=== PATIENT | female | born 1945 | race Caucasian/White ===

== ENCOUNTER 2016-10-01 12:01 | Inpatient (IN) | payer MEDICARE, OTHER ==
[2016-10-01] VITALS (9 sets, daily range): BP systolic 120–151; BP diastolic 63–87; PULSE 64–80; RESP 16–18; TEMP 97.7–98.7; O2SAT 96–100
[~2016-10-01] VITALS: Ht 162.6 cm; Wt 110.9 kg
[~2016-10-01 12:01] MED LIST: ASPI81 PO; CALC625 PO; DETR4CAP PO; DOCU1CAP39 PO; HYDR-2768 PO; Hydrocodone/Acetaminophen PO; METO50CR PO; OMEP20TA PO; ROSU10 PO; TAB-TAB PO
--- NOTE | 2016-10-01 12:14 | PD ---
HPI Chief Complaint: chest pain Time Seen by Provider: 12:11 Travel History International Travel<30 days: No Contact w/Intl Traveler<30days: No History of Present Illness HPI Patient comes in for evaluation for chest pain that began shortly prior to arrival. Patient describes a pressure-like pain that radiated to her left jaw. Patient denies any back pain, nausea, vomiting, headache, numbness or tingling anywhere, or diaphoresis with this. Patient does report some mild shortness of breath with this. Patient sees Dr. Rivers and reports recently having echo, Holter monitor, chest CT, and carotid Doppler studies done. Patient reports she was recently started on Plavix, but has only taken 2 doses. Patient states she took 2 aspirin today one this morning and the second one after the chest pain began. Chest pain improved with oxygen administration by EMS. PFSH Past Medical History Arthritis: No Blood Disorders: No Cancer: No Cardiovascular Problems: Yes (MVP, ARRHYTHMIA) High Cholesterol: Yes Diabetes: No Diminished Hearing: No Endocrine: No Gastrointestinal Disorders: Yes GERD: Yes Genitourinary: Yes (FREQUENCY) Hepatitis: No Hiatal Hernia: Yes Immune Disorder: No Musculoskeletal: Yes Neurologic: No Psychiatric: No Reproductive: No Respiratory: No Thyroid Disease: No Ulcer: No Menopausal: Yes Tubal Ligation: Yes Past Surgical History AICD: No Gynecologic Surgery: Yes (TUBAL LIG.) Joint Replacement: Yes (KEITH. KNEES) Pacemaker: No Other Surgery: Yes ([facility]) Social History Alcohol Use: No Tobacco Use: No Substance Use: No Allergies-Medications (Allergen,Severity, Reaction): Coded Allergies: No Known Allergies (Verified , 10/01/16) Reported Meds & Prescriptions Reported Meds & Active Scripts Active [Hydrocodone/Acetaminophen] 1 TAB Tab 1 Tab PO Q4H PRN Reported Colace 100 Mg Cap (Docusate Sodium) 100 Mg Cap 100 Mg PO HS Fiber Con (Calcium Polycarbophil) 625 Mg Tab 625 Mg PO HS Multivitamin (Multivitamins) 1 Tab Tab 1 Tab PO DAILY Hctz (Hydrochlorothiazide) 25 Mg Tab 25 Mg PO DAILY Detrol La (Tolterodine Tartrate) 4 Mg Cap 4 Mg PO DAILY Omeprazole 20 mg (Omeprazole) 20 Mg Tab 1 Tab PO BID Metoprolol Succinate ER 50 mg (Metoprolol Succinate) 50 Mg Tab 50 Mg PO HS Crestor (Rosuvastatin Calcium) 10 Mg Tab 10 Mg PO HS Aspirin 81 Mg Tab 1 PO DAILY Review of Systems Except as stated in HPI: all other systems reviewed are Neg Physical Exam Narrative GENERAL: Well-developed, overly nourished, in no acute distress, and non-ill appearing. SKIN: Focused skin assessment warm and dry. HEAD: Atraumatic. Normocephalic. EYES: Pupils equal and round. EOMI. No scleral icterus. No injection or drainage. ENT: No nasal bleeding or discharge. Mucous membranes pink and moist. NECK: Trachea midline. Supple. No nuclear rigidity. CARDIOVASCULAR: Regular rate and rhythm. Murmur appreciated. RESPIRATORY: No accessory muscle use. No respiratory distress. Clear to auscultation. Breath sounds equal bilaterally. MUSCULOSKELETAL: No obvious deformities. No clubbing. No cyanosis. No edema. Full range of motion. NEUROLOGICAL: Awake and alert. No obvious cranial nerve deficits. Motor grossly within normal limits. Normal speech. PSYCHIATRIC: Appropriate mood and affect; insight and judgment normal. Data Data Last Documented VS Vital Signs Date Time Temp Pulse Resp B/P Pulse Ox O2 Delivery O2 Flow Rate FiO2 10/01/16 14:10 67 16 140/87 98 Nasal Cannula 2 10/01/16 12:08 98.5 Orders Electrocardiogram (10/01/16 12:10) Basic Metabolic Panel (Bmp) (10/01/16 12:10) Ckmb (Isoenzyme) Profile (10/01/16 12:10) Complete Blood Count With Diff (10/01/16 12:10) Magnesium (Mg) (10/01/16 12:10) Prothrombin Time / Inr (Pt) (10/01/16 12:10) Act Partial Throm Time (Ptt) (10/01/16 12:10) Troponin I (10/01/16 12:10) Chest, Single Ap (10/01/16 12:10) Ecg Monitoring (10/01/16 12:10) Bilateral Bp Monitoring (10/01/16 12:10) Iv Access Insert/Monitor (10/01/16 12:10) Oximetry (10/01/16 12:10) Oxygen Administration (10/01/16 12:10) Sodium Chloride 0.9% Flush (Ns Flush) (10/01/16 12:15) Nitroglycerin Sl (Nitrostat Sl) (10/01/16 12:15) CKMB (10/01/16 12:20) CKMB% (10/01/16 12:20) Consult Cardiology (10/01/16 ) Admit Order (Ed Use Only) (10/01/16 14:39) Labs Laboratory Tests Test 10/01/16 12:20 White Blood Count 5.1 TH/MM3 Red Blood Count 4.26 MIL/MM3 Hemoglobin 13.1 GM/DL Hematocrit 39.8 % Mean Corpuscular Volume 93.5 FL Mean Corpuscular Hemoglobin 30.8 PG Mean Corpuscular Hemoglobin 33.0 % Concent Red Cell Distribution Width 13.9 % Platelet Count 207 TH/MM3 Mean Platelet Volume 7.7 FL Neutrophils (%) (Auto) 49.3 % Lymphocytes (%) (Auto) 34.9 % Monocytes (%) (Auto) 13.0 % Eosinophils (%) (Auto) 1.9 % Basophils (%) (Auto) 0.9 % Neutrophils # (Auto) 2.5 TH/MM3 Lymphocytes # (Auto) 1.8 TH/MM3 Monocytes # (Auto) 0.7 TH/MM3 Eosinophils # (Auto) 0.1 TH/MM3 Basophils # (Auto) 0.0 TH/MM3 CBC Comment DIFF FINAL Differential Comment Prothrombin Time 10.0 SEC Prothromb Time International 0.9 RATIO Ratio Activated Partial 25.1 SEC Thromboplast Time Sodium Level 138 MEQ/L Potassium Level 3.9 MEQ/L Chloride Level 102 MEQ/L Carbon Dioxide Level 30.1 MEQ/L Anion Gap 6 MEQ/L Blood Urea Nitrogen 11 MG/DL Creatinine 0.69 MG/DL Estimat Glomerular Filtration 84 ML/MIN Rate Random Glucose 98 MG/DL Calcium Level 8.6 MG/DL Magnesium Level 2.0 MG/DL Total Creatine Kinase 106 U/L Creatine Kinase MB 0.8 NG/ML Troponin I LESS THAN 0.02 NG/ML MDM Medical Decision Making Medical Screen Exam Complete: Yes Emergency Medical Condition: Yes Interpretation(s) EKG reviewed by Dr. Harden shows sinus rhythm with ventricular rate of 66. No STEMI. Chest x-ray read by the radiologist shows: Compensated cardiomegaly otherwise negative. Differential Diagnosis Chest pain, acute coronary syndrome, pneumonia, electrolyte abnormality, pneumothorax, other Narrative Course Patient was seen and examined. IV was established. EKG is obtained and reviewed. Patient was placed on engine monitor. Labs were radiological studies were obtained and reviewed. Discussed patient with Dr. Harden, who saw and evaluated the patient and is in agreement with plan of care and disposition. Discussed all findings and plan of care with patient, who was agreeable for admission. All questions were answered. Patient remained stable throughout ED course. Physician Communication Physician Communication [address] Rivers, agreeable to consult on patient with patient to be admitted to the hospitalist. [id number] discussed patient with resident phone specialist for Dr. Mtz, who is agreeable to admit the patient. Diagnosis Primary Impression: Chest pain Qualified Code: R07.9 - Chest pain, unspecified type Admitting Information Admitting Physician Requests: Observation Condition: Stable Mohan Lyle Oct 01, 2016 12:14
[2016-10-01] MEDS ORDERED: SODIUM CHLORIDE 0.9% FLUSH 10 ML FLUSH IVF PRN (12:15)
--- NOTE | 2016-10-01 12:42 | RADRPT ---
EXAM DATE/TIME: 10/01/2016 12:14 [facility] COMPARISON: No previous studies available for comparison. INDICATIONS : Chest pain. MEDICAL HISTORY : None. SURGICAL HISTORY : None. ENCOUNTER: Initial ACUITY: 1 day PAIN SCORE: 5/10 LOCATION: Bilateral chest FINDINGS: The lungs are clear. The heart is minimally enlarged. The pulmonary vascularity is normal. There is n o evidence for infiltrate or failure. The portion of the bony skeleton visualized is unremarkable with exception of right right total shou lder arthroplasty.. CONCLUSION: Compensated cardiomegaly otherwise negative Tristan Barakat MD FACR Board Certified Radiologist. This report was verified electronically.
[2016-10-01] MEDS: NITROGLYCERIN 0.4 MG SL 25 TABS/BTL SL SCH ×3 (12:43→13:00)
[2016-10-01 12:48] LABS: AUTOMATED NEUTROPHIL # 2.5 TH/MM3 (1.8-7.7); BASOPHIL % 0.9 % (0.0-2.0); EOSINOPHIL # 0.1 TH/MM3 (0-0.4); EOSINOPHIL % 1.9 % (0.0-4.0); HEMATOCRIT 39.8 % (35.0-46.0); HEMO FLAGS DIFF FINAL; LYMPH % 34.9 % (9.0-44.0); LYMPHOCYTE # 1.8 TH/MM3 (1.0-4.8); MEAN CELL VOLUME 93.5 FL (80.0-100.0); MEAN CORPUSCULAR HEMOGLOBIN 30.8 PG (27.0-34.0); NEUT % 49.3 % (16.0-70.0); PLATELET COUNT 207 TH/MM3 (150-450); RED BLOOD COUNT 4.26 MIL/MM3 (4.00-5.30); RED CELL DISTRIBUTION WIDTH 13.9 % (11.6-17.2); WHITE BLOOD COUNT 5.1 TH/MM3 (4.0-11.0)
[2016-10-01 12:56] LABS: APTT (PATIENT) 25.1 SEC (24.3-30.1); INTERNATIONAL NORMALIZED RATIO 0.9 RATIO
[2016-10-01 13:11] LABS: ANION GAP 6 MEQ/L (5-15); BICARBONATE 30.1 MEQ/L (21.0-32.0); BLOOD UREA NITROGEN 11 MG/DL (7-18); CHLORIDE 102 MEQ/L (98-107); GLOMERULAR FILTRATION RATE 84 ML/MIN (>89); POTASSIUM 3.9 MEQ/L (3.5-5.1); SODIUM (NA) 138 MEQ/L (136-145)
[2016-10-01 13:15] LABS: CREATINE KINASE 106 U/L (26-192)
[2016-10-01 13:27] LABS: CKMB 0.8 NG/ML (0.5-3.6)
--- NOTE | 2016-10-01 15:21 | PD ---
Data Data Last Documented VS Vital Signs Date Time Temp Pulse Resp B/P Pulse Ox O2 Delivery O2 Flow Rate FiO2 10/01/16 14:10 67 16 140/87 98 Nasal Cannula 2 10/01/16 12:08 98.5 Orders Electrocardiogram (10/01/16 12:10) Basic Metabolic Panel (Bmp) (10/01/16 12:10) Ckmb (Isoenzyme) Profile (10/01/16 12:10) Complete Blood Count With Diff (10/01/16 12:10) Magnesium (Mg) (10/01/16 12:10) Prothrombin Time / Inr (Pt) (10/01/16 12:10) Act Partial Throm Time (Ptt) (10/01/16 12:10) Troponin I (10/01/16 12:10) Chest, Single Ap (10/01/16 12:10) Ecg Monitoring (10/01/16 12:10) Bilateral Bp Monitoring (10/01/16 12:10) Iv Access Insert/Monitor (10/01/16 12:10) Oximetry (10/01/16 12:10) Oxygen Administration (10/01/16 12:10) Sodium Chloride 0.9% Flush (Ns Flush) (10/01/16 12:15) Nitroglycerin Sl (Nitrostat Sl) (10/01/16 12:15) CKMB (10/01/16 12:20) CKMB% (10/01/16 12:20) Consult Cardiology (10/01/16 ) Admit Order (Ed Use Only) (10/01/16 14:39) Labs Laboratory Tests Test 10/01/16 12:20 White Blood Count 5.1 TH/MM3 Red Blood Count 4.26 MIL/MM3 Hemoglobin 13.1 GM/DL Hematocrit 39.8 % Mean Corpuscular Volume 93.5 FL Mean Corpuscular Hemoglobin 30.8 PG Mean Corpuscular Hemoglobin 33.0 % Concent Red Cell Distribution Width 13.9 % Platelet Count 207 TH/MM3 Mean Platelet Volume 7.7 FL Neutrophils (%) (Auto) 49.3 % Lymphocytes (%) (Auto) 34.9 % Monocytes (%) (Auto) 13.0 % Eosinophils (%) (Auto) 1.9 % Basophils (%) (Auto) 0.9 % Neutrophils # (Auto) 2.5 TH/MM3 Lymphocytes # (Auto) 1.8 TH/MM3 Monocytes # (Auto) 0.7 TH/MM3 Eosinophils # (Auto) 0.1 TH/MM3 Basophils # (Auto) 0.0 TH/MM3 CBC Comment DIFF FINAL Differential Comment Prothrombin Time 10.0 SEC Prothromb Time International 0.9 RATIO Ratio Activated Partial 25.1 SEC Thromboplast Time Sodium Level 138 MEQ/L Potassium Level 3.9 MEQ/L Chloride Level 102 MEQ/L Carbon Dioxide Level 30.1 MEQ/L Anion Gap 6 MEQ/L Blood Urea Nitrogen 11 MG/DL Creatinine 0.69 MG/DL Estimat Glomerular Filtration 84 ML/MIN Rate Random Glucose 98 MG/DL Calcium Level 8.6 MG/DL Magnesium Level 2.0 MG/DL Total Creatine Kinase 106 U/L Creatine Kinase MB 0.8 NG/ML Troponin I LESS THAN 0.02 NG/ML MDM Supervised Visit with BONITA: Yes Narrative Course The history, exam, and medical decision-making in the associated midlevel provider note were completed with my assistance. I reviewed and agree with the findings presented. I attest that I had a [id number] encounter with the patient on the same day, and personally performed and documented my assessment and findings in the medical record. *My assessment and Findings: This is a 67-year-old female who presents to the emergency department with left-sided chest discomfort. She has a reassuring EKG. Labs are obtained which were reassuring. We spoke to Dr. Rivers her rubber and pounder requested she be admitted for serial cardiac enzymes and likely risk stratification. She thinks her last stress test was over a year ago. Diagnosis Primary Impression: Chest pain Qualified Code: R07.9 - Chest pain, unspecified type Condition: Ruchi Hernandez MD Oct 01, 2016 15:21
[2016-10-01] MEDS ORDERED: SODIUM CHLORIDE 0.9% FLUSH 10 ML FLUSH IV FLUSH PRN (15:30)
[2016-10-01] MEDS ORDERED: DETR2TAB PO (15:33)
[2016-10-01] MEDS ORDERED: PANT40TA3 PO (15:33)
[2016-10-01] MEDS ORDERED: HYDR25TA5 PO (15:33)
[2016-10-01] MEDS ORDERED: ASPI81TA81 (15:33)
[2016-10-01] MEDS ORDERED: CLOP75TA PO (15:33)
[2016-10-01] MEDS ORDERED: METO50TA11 PO (15:33)
[2016-10-01] MEDS ORDERED: ROSU1TAB6 PO (15:33)
--- NOTE | 2016-10-01 15:50 | HHI.HP ---
[facility] Service Family Medicine Primary Care Physician Robbi Galindo MD Admission Diagnosis chest pain Diagnoses: International Travel<30 Days: No Contact w/Intl Traveler<30days: No Known Affected Area: No History of Present Illness 71 year old female with a past medical history of hypertension, mitral valve prolapse, GERD and hyperlipidemia presents to the ED for an episode of acute onset chest pain associated with dizziness, palpitations and shortness of breath. Patient reports sitting in bed when substernal pressure began and worsened over a period of 10 minutes. Initially she thought it was symptoms related to her GERD, however it was different than other GERD pain in the past. Patient then called 911, and took an aspirin while EMS arrived. She had a similar episode approximately 1 month prior which resolved in less than a couple hours. Currently she is experiencing substernal chest pressure without any other symptoms such as shortness of breath, diaphoresis, headache, belly pain, nausea or vomiting. She denied recent illness, leg swelling, or sick contacts. Patient had a stress test in 03/10 and recent echocardiogram, Holter monitor and chest CT as per her home and family living professor Dr. Rivers and has never had a heart catheterization. She started Plavix 2 days ago. (Melina Pierce MD R3) Review of Systems Other Denies fevers or chills Denies headaches, blurry vision, or dizziness Admits to chest pain, denies diaphoresis, palpitations, shortness of breath, extremity edema Denies nausea, vomiting, constipation, diarrhea, abdominal pain (Melina Pierce MD R3) Past Family Social History Past Medical History Hypertension Mitral valve prolapse GERD Hyperlipidemia Past Surgical History Bilateral tubal ligation Bilateral knee replacement Right shoulder replacement (Melina Pierce MD R3) Allergies: Coded Allergies: No Known Allergies (Verified , 10/01/16) Family History Brother with 5 vessel coronary artery bypass Social History Denies tobacco, alcohol or substance use (Melina Pierce MD R3) Physical Exam Vital Signs Vital Signs Date Time Temp Pulse Resp B/P Pulse Ox O2 Delivery O2 Flow Rate FiO2 10/01/16 14:10 67 16 140/87 98 Nasal Cannula 2 10/01/16 12:57 75 16 128/70 98 Nasal Cannula 2 10/01/16 12:51 77 16 120/71 98 Nasal Cannula 2 10/01/16 12:48 15 10/01/16 12:41 65 16 129/71 98 Nasal Cannula 2 10/01/16 12:10 73 16 98 Nasal Cannula 2 10/01/16 12:10 98 Nasal Cannula 2 10/01/16 12:08 98.5 80 16 148/78 97 Physical Exam GENERAL: This is a well-nourished, well-developed patient, in no apparent distress. SKIN: No rashes, ecchymoses or lesions. Cool and dry. HEAD: Atraumatic. Normocephalic. No temporal or scalp tenderness. EYES: Pupils equal round and reactive. Extraocular motions intact. No scleral icterus. No injection or drainage. ENT: Nose without bleeding, purulent drainage or septal hematoma. Throat without erythema, tonsillar hypertrophy or exudate. Uvula midline. Airway patent. NECK: Trachea midline. No JVD or lymphadenopathy. Supple, nontender, no meningeal signs. CARDIOVASCULAR: Regular rate and rhythm without murmurs, gallops, or rubs. Pulses present and equal in all 4 extremities. RESPIRATORY: Clear to auscultation. Breath sounds equal bilaterally. No wheezes , rales, or rhonchi. GASTROINTESTINAL: Abdomen soft, non-tender, nondistended. No hepato-splenomegaly , or palpable masses. No guarding. MUSCULOSKELETAL: Extremities without clubbing, cyanosis, or edema. No joint tenderness, effusion, or edema noted. No calf tenderness. Negative Homans sign bilaterally. NEUROLOGICAL: Awake and alert. Cranial nerves II through XII intact. Motor and sensory grossly within normal limits. Five out of 5 muscle strength in all muscle groups. Normal speech. Laboratory Laboratory Tests Test 10/01/16 12:20 White Blood Count 5.1 Red Blood Count 4.26 Hemoglobin 13.1 Hematocrit 39.8 Mean Corpuscular Volume 93.5 Mean Corpuscular Hemoglobin 30.8 Mean Corpuscular Hemoglobin 33.0 Concent Red Cell Distribution Width 13.9 Platelet Count 207 Mean Platelet Volume 7.7 Neutrophils (%) (Auto) 49.3 Lymphocytes (%) (Auto) 34.9 Monocytes (%) (Auto) 13.0 Eosinophils (%) (Auto) 1.9 Basophils (%) (Auto) 0.9 Neutrophils # (Auto) 2.5 Lymphocytes # (Auto) 1.8 Monocytes # (Auto) 0.7 Eosinophils # (Auto) 0.1 Basophils # (Auto) 0.0 CBC Comment DIFF FINAL Differential Comment Prothrombin Time 10.0 Prothromb Time International 0.9 Ratio Activated Partial 25.1 Thromboplast Time Sodium Level 138 Potassium Level 3.9 Chloride Level 102 Carbon Dioxide Level 30.1 Anion Gap 6 Blood Urea Nitrogen 11 Creatinine 0.69 Estimat Glomerular Filtration 84 Rate Random Glucose 98 Calcium Level 8.6 Magnesium Level 2.0 Total Creatine Kinase 106 Creatine Kinase MB 0.8 Troponin I LESS THAN 0.02 (Melina Pierce MD R3) Result Diagram: 10/01/16 1220 10/01/16 1220 Assessment and Plan Assessment and Plan Patient is a 71 year old female with a history of hypertension, mitral valve prolapse, gastroesophageal reflux disease, and hyperlipidemia presenting today due to acute onset chest pain associated with palpitations, dizziness and shortness of breath. 1. Chest pain: - Nitroglycerin and morphine as needed for pain relief - Follow troponin every 6 hours for 2 more draws - obtain 2 more EKGs every 6 hours - Cardiology consulted and would like cardiac catheterization possibly 04/10. - continue home Plavix and aspirin 2. Chronic medical problems: - hypertension: continue home HCTZ and metoprolol - hyperlipidemia: continue home rosuvastatin - GERD: continue home Protonix 3. FEN: - DVT prophylaxis: start heparin 5000 units q8hrs - regular diet (Melina Pierce MD R3) Attending Attestation The patient has been seen and examined. The chart and all resident notes have been reviewed. I agree that inpatient care is appropriate and that a two midnight stay is expected for the reasons documented in the resident history and physical. I have discussed this with the resident and certify the resident s order for inpatient admission. All systems reviewed and neg except as stated in HPI (Heather Mtz MD) Problem List: (1) Chest pain Status: Acute (2) HTN (hypertension) Status: Acute (3) GERD (gastroesophageal reflux disease) Status: Acute (4) Hyperlipidemia Status: Acute (Melina Pierce MD R3) Physician Certification 2 Midnight Certification Type: Admission for Inpatient Services Order for Inpatient Services The services are ordered in accordance with Medicare regulations or non- Medicare payer requirements, as applicable. In the case of services not specified as inpatient-only, they are appropriately provided as inpatient services in accordance with the 2-midnight benchmark. Estimated LOS (days): 2 2 days is the estimated time the patient will need to remain in the hospital, assuming treatment plan goals are met and no additional complications. Post-Hospital Plan: Not yet determined (Melina Pierce MD R3) Problem Qualifiers (1) Chest pain: Qualified Code: R07.9 - Chest pain, unspecified type Melina Pierce MD R3 Oct 01, 2016 15:50 Heather Mtz MD Oct 02, 2016 14:22
[2016-10-01] MEDS ORDERED: NITROGLYCERIN 0.4 MG SL 25 TABS/BTL SL PRN (16:00)
[2016-10-01] MEDS ORDERED: DOCUSATE SODIUM 100 MG CAP PO PRN (16:00)
[2016-10-01] MEDS ORDERED: MORPHINE SULFATE 4 MG/ML INJ IV PRN (16:00)
[2016-10-01] MEDS ORDERED: ONDANSETRON HCL 4 MG/2 ML VIAL IV PRN (16:00)
[2016-10-01] MEDS ORDERED: ACETAMINOPHEN 325 MG TAB PO PRN (16:00)
[2016-10-01] MEDS: HEPARIN SODIUM - SQ 10,000 UNITS/ML VIAL SQ SCH (16:29)
[2016-10-01] MEDS ORDERED: ASPIRIN 325 MG TAB PO SCH (18:00)
[2016-10-01] MEDS: SODIUM CHLOR 0.9% 1000 ML INJ 1,000 ML IV SCH (19:12)
--- NOTE | 2016-10-01 19:16 | MB ---
cc: NIKA RIVERS MD,BOO Gonzalez MD DATE OF CONSULTATION 10/01/16 Thank you, Dr. Lyle, for asking us to see this very pleasant 71-year old white female who is well-known to Dr. Boo Galindo. She presents with a history of mitral prolapse hypertension, hypertension, episode of severe chest pain today that she states was different from her usual gastroesophageal reflux disease. She has had a prior history of a nuclear stress test carried out by the undersigned on 07/17/2015 which was negative. She is very concerned that she needs a heart catheterization. She started Plavix two days ago and is on aspirin. PAST MEDICAL HISTORY 1. Possible mitral prolapse, 2. Hypertension, 3. Gastroesophageal reflux disease, 4. Hyperlipidemia 5. Bilateral tubal ligation 6. Bilateral knee replacement 7. Right shoulder surgery, 8. Cataract surgery 9. Palpitations 10. TIA 11. Carpal tunnel syndrome PHYSICAL EXAMINATION VITAL SIGNS: On examination, pulse was 67, blood pressure 140/87. EYES: No xanthelasma. NECK: No JVD. CARDIAC: She had two heart sounds, no murmurs. CHEST: Clear. ABDOMEN: Soft. No hepatosplenomegaly. EXTREMITIES: Legs reveal no evidence of edema. NEUROLOGIC: Grossly intact. LABORATORY DATA White count 5.1, hemoglobin 13.1, platelet count 207,000. ASSESSMENT/PLAN Patient with mitral valve prolapse, GE reflux disease, hyperlipidemia with chest pain. Risks of heart catheterization including , bleeding, myocardial infarction, perforation, aspiration, foreseen and unforeseen complications reviewed. The patient fully appears to understsand. We will plan to proceed with this on Tuesday. In the meantime, we will rule out myocardial infarction with serial enzymes and EKGs. Thank you for asking us to see this very pleasant lady. Nika Rivers MD, FRCP,[facility]/ /6:41 PM /6:52 PM
[2016-10-01 20:29] LABS: APTT (PATIENT) 24.7 SEC (24.3-30.1); PROTHROMBIN TIME - PATIENT 10.5 SEC (9.8-11.6)
[2016-10-01 20:38] LABS: CREATINE KINASE 89 U/L (26-192)
[2016-10-01] MEDS: ATORVASTATIN 20 MG TAB PO SCH (20:48)
[2016-10-01] MEDS: TOLTERODINE TARTRATE 2 MG CAP LA PO SCH (20:49)
[2016-10-01] MEDS: SODIUM CHLORIDE 0.9% FLUSH 10 ML FLUSH IV FLUSH SCH (20:50)
[2016-10-01] MEDS ORDERED: HYDROCHLOROTHIAZIDE 25 MG TAB PO SCH (21:00)
[2016-10-02] VITALS (10 sets, daily range): BP systolic 111–182; BP diastolic 53–76; PULSE 60–72; RESP 18–20; TEMP 97.5–98.1; O2SAT 95–100
[2016-10-02] MEDS: HEPARIN SODIUM - SQ 10,000 UNITS/ML VIAL SQ SCH ×3 (00:21→16:18)
[2016-10-02 00:59] LABS: CREATINE KINASE 84 U/L (26-192)
[2016-10-02] MEDS: SODIUM CHLORIDE 0.9% FLUSH 10 ML FLUSH IV FLUSH SCH ×2 (08:49→20:53)
[2016-10-02] MEDS: TOLTERODINE TARTRATE 2 MG CAP LA PO SCH ×2 (08:53→20:52)
[2016-10-02] MEDS: METOPROLOL SUCCINATE 50 MG EXTENDED RELEASE TAB PO SCH (08:53)
[2016-10-02] MEDS: CLOPIDOGREL 75 MG TAB PO SCH (08:53)
[2016-10-02] MEDS: PANTOPRAZOLE SOD 40 MG DELAYED RELEASE TAB PO SCH (08:53)
[2016-10-02] MEDS: HYDROCHLOROTHIAZIDE 25 MG TAB PO SCH (08:54)
[2016-10-02] MEDS: ASPIRIN 81 MG CHEW TAB PO SCH (08:54)
[2016-10-02 09:25] LABS: AUTOMATED NEUTROPHIL # 2.3 TH/MM3 (1.8-7.7); BASOPHIL % 0.6 % (0.0-2.0); EOSINOPHIL # 0.1 TH/MM3 (0-0.4); EOSINOPHIL % 2.8 % (0.0-4.0); HEMO FLAGS DIFF FINAL; LYMPH % 33.6 % (9.0-44.0); LYMPHOCYTE # 1.5 TH/MM3 (1.0-4.8); MEAN CELL VOLUME 93.7 FL (80.0-100.0); MEAN CORPUSCULAR HEMOGLOBIN 30.5 PG (27.0-34.0); MEAN CORPUSCULAR HGB CONC 32.6 % (32.0-36.0); MONO % 10.9 % (0.0-8.0); NEUT % 52.1 % (16.0-70.0); PLATELET COUNT 188 TH/MM3 (150-450); RED BLOOD COUNT 3.95 MIL/MM3 (4.00-5.30); RED CELL DISTRIBUTION WIDTH 13.8 % (11.6-17.2); WHITE BLOOD COUNT 4.4 TH/MM3 (4.0-11.0)
[2016-10-02 09:57] LABS: BICARBONATE 28.2 MEQ/L (21.0-32.0); POTASSIUM 3.6 MEQ/L (3.5-5.1)
--- NOTE | 2016-10-02 14:21 | HHI.FPPN ---
Subjective Subjective Patient seen and examined with the resident team. Case reviewed and discussed Please refer to resident H&P for further details regarding HPI, ROS, PMH, SurgHx , FH and SocHX In summary, patient is a 71yoF with a history of chest pain x 1 month, who has undergone work-up by cardiology including Holter monitor. She presented to the ED with recurrence of this chest pain. She is known to Dr. Rivers. She is seen in her hospital room, chest pain free, but did have an episode of chest pain last night. No shortness of breath. [facility] Objective Objective Laboratory Tests - Abnormals Test 10/01/16 10/02/16 10/02/16 19:30 00:18 07:00 Troponin I LESS THAN 0.02 LESS THAN 0.02 NG/ML NG/ML Red Blood Count 3.95 MIL/MM3 Monocytes (%) (Auto) 10.9 % Vital Signs 10/01/16 10/01/16 10/01/16 10/01/16 16:00 17:53 19:59 20:00 Temp 97.7 98.7 Pulse 64 69 68 71 Resp 16 18 18 B/P 151/68 135/63 134/68 Pulse Ox 98 100 96 O2 Delivery Nasal Cannula O2 Flow Rate 2 10/02/16 10/02/16 10/02/16 10/02/16 00:30 02:40 03:03 08:00 Temp 97.9 97.5 98.1 Pulse 67 70 66 65 Resp 18 20 18 B/P 126/61 147/67 135/63 Pulse Ox 98 95 97 10/02/16 10/02/16 10/02/16 08:45 10:33 12:00 Temp 97.8 Pulse 60 72 Resp 18 B/P 129/59 Pulse Ox 97 95 FiO2 21 INTAKE & OUTPUT 10/02/16 07:00 Intake Total 780 ml Output Total 800 ml Balance -20 ml Physical exam GENERAL: Obese female, wdwn, NAD SKIN: Warm and dry. NO rashes. Varicose veins LE b/l. HEAD: Normocephalic. AT EYES: No scleral icterus. No injection or drainage. ENT: OP clear. MMM NECK: Supple, trachea midline. No JVD or lymphadenopathy. CARDIOVASCULAR: Regular rate and rhythm without audible murmurs, gallops, or rubs. RESPIRATORY: Breath sounds equal and clear bilaterally. No accessory muscle use. GASTROINTESTINAL: Abdomen soft, non-tender, nondistended. Normal active BS MUSCULOSKELETAL: No cyanosis, or edema. NO calf tenderness BACK: Nontender without obvious deformity. No CVA tenderness. NEURO: Awake and alert. Normal speech. CN grossly intact. Assessment Assessment 71yoF with: Chest pain R/o ACS HTN HL MVP Obesity GERD PLAN PLAN Serial ekg, CE Resume home meds as appropriate Cardiology consultation, known to Tita Plan for cardiac cath Tuesday DDimer Supplemental oxygen as needed Protonix Heparin for DVT proph Patient seen and examined. Case reviewed and discussed Agree with plan of care as discussed with me and documented in the resident note. Heather Mtz MD Oct 02, 2016 14:21
[2016-10-02] MEDS: SODIUM CHLOR 0.9% 1000 ML INJ 1,000 ML IV SCH (16:19)
--- NOTE | 2016-10-02 16:30 | PD.CARD.PN ---
Subjective Subjective Remarks No SOB, brief episode of CP last night Objective Medications Current Medications Medications (Trade) Dose Ordered Sig/Leonel Route Start Time Stop Time Status Last Admin (NS Flush) 2 ml BID IV FLUSH 10/01/16 21:00 10/01/16 20:50 (NS Flush) 2 ml UNSCH PRN IV FLUSH 10/01/16 15:30 (Nitrostat Sl) 0.4 mg Q5M PRN SL 10/01/16 16:00 (Morphine Inj) 2 mg Q30M PRN IV 10/01/16 16:00 (Tylenol) 650 mg Q6H PRN PO 10/01/16 16:00 (Colace) 100 mg BID PRN PO 10/01/16 16:00 (Zofran Inj) 4 mg Q6H PRN IV 10/01/16 16:00 (Heparin Inj) 5,000 units Q8H SQ 10/01/16 16:00 10/02/16 16:18 (Plavix) 75 mg DAILY PO 10/02/16 09:00 10/02/16 08:53 (Toprol Xl) 50 mg DAILY PO 10/02/16 09:00 10/02/16 08:53 (Protonix) 40 mg DAILY PO 10/02/16 09:00 10/02/16 08:53 (Lipitor) 20 mg HS PO 10/01/16 21:00 10/01/16 20:48 (Detrol La) 2 mg BID PO 10/01/16 21:00 10/02/16 08:53 Aspirin 81 mg 81 mg DAILY PO 10/02/16 09:00 10/02/16 08:54 (NS 1000 ml Inj) 1,000 ml @ 30 mls/hr Q24H IV 10/01/16 17:49 10/06/16 17:48 10/02/16 16:19 (Hydrodiuril) 25 mg DAILY PO 10/02/16 09:00 10/02/16 08:54 Vital Signs / I&O Vital Signs Date Time Temp Pulse Resp B/P Pulse Ox O2 Delivery O2 Flow Rate FiO2 10/02/16 12:00 97.8 72 18 129/59 95 10/02/16 10:33 97 21 10/02/16 08:45 60 10/02/16 08:00 98.1 65 18 135/63 97 10/02/16 03:03 66 10/02/16 02:40 97.5 70 20 147/67 95 10/02/16 00:30 97.9 67 18 126/61 98 10/01/16 20:00 71 10/01/16 19:59 98.7 68 18 134/68 96 10/01/16 17:53 97.7 69 18 135/63 100 I/O 10/01/16 10/01/16 10/01/16 10/02/16 10/02/16 10/02/16 07:00 15:00 23:00 07:00 15:00 23:00 Intake Total 480 ml 300 ml 268 ml Output Total 500 ml 300 ml Balance -20 ml 0 ml 268 ml Intake Oral 480 ml 300 ml IV Total 268 ml Output Urine Total 500 ml 300 ml # Bowel Movements 0 Physical Exam GENERAL: In NAD. SKIN: Warm and dry. HEAD: Normocephalic. EYES: No scleral icterus. No injection or drainage. NECK: Supple, trachea midline. No JVD or lymphadenopathy. CARDIOVASCULAR: Regular rate and rhythm without murmurs, gallops, or rubs. RESPIRATORY: Breath sounds equal bilaterally. No accessory muscle use. GASTROINTESTINAL: Abdomen soft, non-tender, nondistended. MUSCULOSKELETAL: No cyanosis, or edema. Laboratory Laboratory Tests Test 10/01/16 10/02/16 10/02/16 10/02/16 19:30 00:18 07:00 10:51 Prothrombin Time 10.5 SEC Prothromb Time International 1.0 RATIO Ratio Activated Partial 24.7 SEC Thromboplast Time Total Creatine Kinase 89 U/L 84 U/L Troponin I LESS THAN 0.02 LESS THAN 0.02 NG/ML NG/ML Thyroid Stimulating Hormone 3.600 uIU/ML 3rd Gen White Blood Count 4.4 TH/MM3 Red Blood Count 3.95 MIL/MM3 Hemoglobin 12.1 GM/DL Hematocrit 37.0 % Mean Corpuscular Volume 93.7 FL Mean Corpuscular Hemoglobin 30.5 PG Mean Corpuscular Hemoglobin 32.6 % Concent Red Cell Distribution Width 13.8 % Platelet Count 188 TH/MM3 Mean Platelet Volume 7.9 FL Neutrophils (%) (Auto) 52.1 % Lymphocytes (%) (Auto) 33.6 % Monocytes (%) (Auto) 10.9 % Eosinophils (%) (Auto) 2.8 % Basophils (%) (Auto) 0.6 % Neutrophils # (Auto) 2.3 TH/MM3 Lymphocytes # (Auto) 1.5 TH/MM3 Monocytes # (Auto) 0.5 TH/MM3 Eosinophils # (Auto) 0.1 TH/MM3 Basophils # (Auto) 0.0 TH/MM3 CBC Comment DIFF FINAL Differential Comment Sodium Level 143 MEQ/L Potassium Level 3.6 MEQ/L Chloride Level 104 MEQ/L Carbon Dioxide Level 28.2 MEQ/L Anion Gap 11 MEQ/L Blood Urea Nitrogen 10 MG/DL Creatinine 0.56 MG/DL Estimat Glomerular Filtration 107 ML/MIN Rate Random Glucose 91 MG/DL Calcium Level 8.5 MG/DL D-Dimer Quantitative (PE/DVT) 0.27 MG/L FEU Imaging Last Impressions Chest X-Ray 10/01/16 1210 Signed Impressions: Service Date/Time: Saturday, October 01, 2016 12:14 - CONCLUSION: Compensated cardiomegaly otherwise negative Tristan Barakat MD FACR Assessment and Plan Problem List: (1) Angina at rest (2) HTN (hypertension) (3) Hyperlipidemia (4) GERD (gastroesophageal reflux disease) (5) MVP (mitral valve prolapse) Assessment and Plan Recurrent angina last night. Continue current program including risk factor modification. Continue monitoring. Cath/possible PCI w Dr. Rivers on Tue. Teagan Wisdom MD Oct 02, 2016 16:30
[2016-10-02] MEDS: ATORVASTATIN 20 MG TAB PO SCH (20:52)
[2016-10-03] VITALS: BP 151/69; PULSE 67; RESP 20; TEMP 97.7; O2SAT 96
[2016-10-03] MEDS: HEPARIN SODIUM - SQ 10,000 UNITS/ML VIAL SQ SCH ×4 (00:19→23:45)
[2016-10-03 04:00] VITALS: BP 130/61; PULSE 65; RESP 20; TEMP 97.8; O2SAT 95
[2016-10-03 08:00] VITALS: BP 122/57; PULSE 64; PULSE 72; RESP 18; TEMP 98; O2SAT 95
[2016-10-03] MEDS: PANTOPRAZOLE SOD 40 MG DELAYED RELEASE TAB PO SCH (08:46)
[2016-10-03] MEDS: CLOPIDOGREL 75 MG TAB PO SCH (08:46)
[2016-10-03] MEDS: TOLTERODINE TARTRATE 2 MG CAP LA PO SCH ×2 (08:46→20:49)
[2016-10-03] MEDS: METOPROLOL SUCCINATE 50 MG EXTENDED RELEASE TAB PO SCH (08:46)
[2016-10-03] MEDS: HYDROCHLOROTHIAZIDE 25 MG TAB PO SCH (08:46)
[2016-10-03] MEDS: ASPIRIN 81 MG CHEW TAB PO SCH (08:47)
[2016-10-03] MEDS: SODIUM CHLORIDE 0.9% FLUSH 10 ML FLUSH IV FLUSH SCH ×2 (08:51→20:48)
--- NOTE | 2016-10-03 09:45 | HHI.FPPN ---
Objective Vitals Vital Signs Date Time Temp Pulse Resp B/P Pulse Ox O2 Delivery O2 Flow Rate FiO2 10/03/16 08:00 98.0 72 18 122/57 95 10/03/16 04:00 Room Air 10/03/16 04:00 97.8 65 20 130/61 95 10/03/16 00:00 97.7 67 20 151/69 96 10/03/16 00:00 Room Air 10/02/16 20:00 71 10/02/16 20:00 98.1 72 20 131/68 100 10/02/16 20:00 Room Air 10/02/16 16:00 97.9 67 18 111/53 97 10/02/16 12:00 97.8 72 18 129/59 95 10/02/16 10:33 97 21 I/O 10/02/16 10/02/16 10/02/16 10/03/16 10/03/16 10/03/16 07:00 15:00 23:00 07:00 15:00 23:00 Intake Total 300 ml 748 ml 138 ml 600 ml Output Total 300 ml Balance 0 ml 748 ml 138 ml 600 ml Intake Oral 300 ml 480 ml 600 ml IV Total 268 ml 138 ml Output Urine Total 300 ml # Voids 7 4 # Bowel Movements 0 0 Result Diagram: 10/02/16 0700 10/02/16 0700 A/P Assessment and Plan Patient is a 71 year old female with a history of hypertension, mitral valve prolapse, gastroesophageal reflux disease, and hyperlipidemia presenting today due to acute onset chest pain associated with palpitations, dizziness and shortness of breath. 1. Chest pain: - Nitroglycerin and morphine as needed for pain relief - Follow troponin every 6 hours for 2 more draws - obtain 2 more EKGs every 6 hours - Cardiology consulted and would like cardiac catheterization possibly 04/10. - continue home Plavix and aspirin 2. Chronic medical problems: - hypertension: continue home HCTZ and metoprolol - hyperlipidemia: continue home rosuvastatin - GERD: continue home Protonix 3. FEN: - DVT prophylaxis: start heparin 5000 units q8hrs - regular diet Problem List: (1) Chest pain Status: Acute (2) HTN (hypertension) Status: Acute (3) GERD (gastroesophageal reflux disease) Status: Acute (4) Hyperlipidemia Status: Acute Problem Qualifiers (1) Chest pain: Qualified Code: R07.9 - Chest pain, unspecified type Timothy Fonseca MD R2 Oct 03, 2016 09:45
--- NOTE | 2016-10-03 09:55 | EKG ---
Date Performed: 10/02/2016 Time Performed: 00:48:51 PTAGE: 71 years EKG: Sinus rhythm WITH FIRST DEGREE AV BLOCK WITH OCCASIONAL VENTRICULAR PREMATURE COMPLEXES ABNORMAL ECG INTERPRETATI ON BASED ON A DEFAULT AGE OF 40 YEARS PREVIOUS TRACING : 10/01/2016 21.49 DOCTOR: Perry Whitehead Interpretating Date/Time 10/03/2016 09:45:26
--- NOTE | 2016-10-03 09:59 | EKG ---
Date Performed: 10/01/2016 Time Performed: 21:49:39 PTAGE: 71 years EKG: Sinus rhythm LOW QRS VOLTAGE IN PRECORDIAL LEADS MODERATE VOLTAGE CRITERIA FOR LVH, CONSIDER NORMAL VARIANT MERLE ARNOLD ECG PREVIOUS TRACING : 10/01/2016 18.35 DOCTOR: Perry Whitehead Interpretating Date/Time 10/03/2016 09:47:39
--- NOTE | 2016-10-03 10:04 | EKG ---
Date Performed: 10/01/2016 Time Performed: 18:35:45 PTAGE: 71 years EKG: Sinus rhythm VOLTAGE CRITERIA FOR LVH ABNORMAL ECG PREVIOUS TRACING : 10/01/2016 12.23 DOCTOR: Perry Whitehead Interpretating Date/Time 10/03/2016 09:51:05
--- NOTE | 2016-10-03 10:13 | EKG ---
Date Performed: 10/01/2016 Time Performed: 12:23:04 PTAGE: 71 years EKG: Sinus rhythm VOLTAGE CRITERIA FOR LVH ABNORMAL ECG PREVIOUS TRACING : 10/01/2016 12.15 DOCTOR: Perry Whitehead Interpretating Date/Time 10/03/2016 09:55:15
[2016-10-03 12:00] VITALS: BP 108/67; PULSE 75; RESP 18; TEMP 98; O2SAT 95
--- NOTE | 2016-10-03 12:18 | HHI.FPPN ---
Subjective Remarks No CP overnight. Comfortable. No concerns. AFVSS Objective Vitals Vital Signs Date Time Temp Pulse Resp B/P Pulse Ox O2 Delivery O2 Flow Rate FiO2 10/03/16 08:00 98.0 72 18 122/57 95 10/03/16 08:00 96 Room Air 21 10/03/16 08:00 64 10/03/16 04:00 Room Air 10/03/16 04:00 97.8 65 20 130/61 95 10/03/16 00:00 97.7 67 20 151/69 96 10/03/16 00:00 Room Air 10/02/16 20:00 71 10/02/16 20:00 98.1 72 20 131/68 100 10/02/16 20:00 Room Air 10/02/16 16:00 97.9 67 18 111/53 97 I/O 10/02/16 10/02/16 10/02/16 10/03/16 10/03/16 10/03/16 07:00 15:00 23:00 07:00 15:00 23:00 Intake Total 300 ml 748 ml 138 ml 600 ml Output Total 300 ml Balance 0 ml 748 ml 138 ml 600 ml Intake Oral 300 ml 480 ml 600 ml IV Total 268 ml 138 ml Output Urine Total 300 ml # Voids 7 4 # Bowel Movements 0 0 Result Diagram: 10/02/1669910/02/16 07 Objective Remarks GENERAL: This is a well-nourished, well-developed patient, in no apparent distress. SKIN: No rashes, ecchymoses or lesions. Cool and dry. HEAD: Atraumatic. Normocephalic. No temporal or scalp tenderness. EYES: Pupils equal round and reactive. Extraocular motions intact. No scleral icterus. No injection or drainage. ENT: Nose without bleeding, purulent drainage or septal hematoma. Throat without erythema, tonsillar hypertrophy or exudate. Uvula midline. Airway patent. NECK: Trachea midline. No JVD or lymphadenopathy. Supple, nontender, no meningeal signs. CARDIOVASCULAR: Regular rate and rhythm without murmurs, gallops, or rubs. Pulses present and equal in all 4 extremities. RESPIRATORY: Clear to auscultation. Breath sounds equal bilaterally. No wheezes , rales, or rhonchi. GASTROINTESTINAL: Abdomen soft, non-tender, nondistended. No hepato-splenomegaly , or palpable masses. No guarding. MUSCULOSKELETAL: Extremities without clubbing, cyanosis, or edema. No joint tenderness, effusion, or edema noted. No calf tenderness. Negative Homans sign bilaterally. NEUROLOGICAL: Awake and alert. Cranial nerves II through XII intact. Motor and sensory grossly within normal limits. Five out of 5 muscle strength in all muscle groups. Normal speech. A/P Assessment and Plan Patient is a 71 year old female with a history of hypertension, mitral valve prolapse, gastroesophageal reflux disease, and hyperlipidemia presenting today due to acute onset chest pain associated with palpitations, dizziness and shortness of breath. 1. Chest pain: - Nitroglycerin and morphine as needed for pain relief - Troponin < 0.02 x 3, EKG remains unchanged. - Cardiology consulted and would like cardiac catheterization possibly 04/10. - continue home Plavix and aspirin 2. Chronic medical problems: - hypertension: continue home HCTZ and metoprolol - hyperlipidemia: continue home rosuvastatin - GERD: continue home Protonix 3. FEN: - DVT prophylaxis: start heparin 5000 units q8hrs - regular diet Problem List: (1) Chest pain Status: Acute (2) HTN (hypertension) Status: Acute (3) GERD (gastroesophageal reflux disease) Status: Acute (4) Hyperlipidemia Status: Acute Problem Qualifiers (1) Chest pain: Qualified Code: R07.9 - Chest pain, unspecified type Timothy Fonseca MD R2 Oct 03, 2016 12:18
--- NOTE | 2016-10-03 15:52 | PD.CARD.PN ---
Subjective Subjective Remarks No CP or SOB, ambulating in the halls Objective Medications Current Medications Medications (Trade) Dose Ordered Sig/Leonel Route Start Time Stop Time Status Last Admin (NS Flush) 2 ml BID IV FLUSH 10/01/16 21:00 10/03/16 08:51 (NS Flush) 2 ml UNSCH PRN IV FLUSH 10/01/16 15:30 (Nitrostat Sl) 0.4 mg Q5M PRN SL 10/01/16 16:00 (Morphine Inj) 2 mg Q30M PRN IV 10/01/16 16:00 (Tylenol) 650 mg Q6H PRN PO 10/01/16 16:00 (Colace) 100 mg BID PRN PO 10/01/16 16:00 (Zofran Inj) 4 mg Q6H PRN IV 10/01/16 16:00 (Heparin Inj) 5,000 units Q8H SQ 10/01/16 16:00 10/03/16 08:47 (Plavix) 75 mg DAILY PO 10/02/16 09:00 10/03/16 08:46 (Toprol Xl) 50 mg DAILY PO 10/02/16 09:00 10/03/16 08:46 (Protonix) 40 mg DAILY PO 10/02/16 09:00 10/03/16 08:46 (Lipitor) 20 mg HS PO 10/01/16 21:00 10/02/16 20:52 (Detrol La) 2 mg BID PO 10/01/16 21:00 10/03/16 08:46 Aspirin 81 mg 81 mg DAILY PO 10/02/16 09:00 10/03/16 08:47 (NS 1000 ml Inj) 1,000 ml @ 30 mls/hr Q24H IV 10/01/16 17:49 10/06/16 17:48 10/02/16 16:19 Hydrochlorothiazide 25 mg 25 mg DAILY PO 10/02/16 09:00 10/03/16 08:46 (D5-1/2 NS + KCl 10 Meq Inj) 1,000 ml @ 125 mls/hr Q8H IV 10/04/16 00:00 Vital Signs / I&O Vital Signs Date Time Temp Pulse Resp B/P Pulse Ox O2 Delivery O2 Flow Rate FiO2 10/03/16 12:00 98.0 75 18 108/67 95 6/11/17 08:00 98.0 72 18 122/57 95 10/03/16 08:00 96 Room Air 21 10/03/16 08:00 64 10/03/16 04:00 Room Air 10/03/16 04:00 97.8 65 20 130/61 95 10/03/16 00:00 97.7 67 20 151/69 96 10/03/16 00:00 Room Air 10/02/16 20:00 71 10/02/16 20:00 98.1 72 20 131/68 100 10/02/16 20:00 Room Air 10/02/16 16:00 97.9 67 18 111/53 97 I/O 10/02/16 10/02/16 10/02/16 10/03/16 10/03/16 10/03/16 07:00 15:00 23:00 07:00 15:00 23:00 Intake Total 300 ml 748 ml 138 ml 600 ml Output Total 300 ml Balance 0 ml 748 ml 138 ml 600 ml Intake Oral 300 ml 480 ml 600 ml IV Total 268 ml 138 ml Output Urine Total 300 ml # Voids 7 4 # Bowel Movements 0 0 Physical Exam GENERAL: In NAD. SKIN: Warm and dry. HEAD: Normocephalic. EYES: No scleral icterus. No injection or drainage. NECK: Supple, trachea midline. No JVD or lymphadenopathy. CARDIOVASCULAR: Regular rate and rhythm without murmurs, gallops, or rubs. RESPIRATORY: Breath sounds equal bilaterally. No accessory muscle use. GASTROINTESTINAL: Abdomen soft, non-tender, nondistended. MUSCULOSKELETAL: No cyanosis, or edema. Laboratory Laboratory Tests Test 10/01/16 10/01/16 10/02/16 10/02/16 12:20 19:30 00:18 07:00 Magnesium Level 2.0 MG/DL Creatine Kinase MB 0.8 NG/ML Prothrombin Time 10.5 SEC Prothromb Time International 1.0 RATIO Ratio Activated Partial 24.7 SEC Thromboplast Time Thyroid Stimulating Hormone 3.600 uIU/ML 3rd Gen Total Creatine Kinase 84 U/L Troponin I LESS THAN 0.02 NG/ML White Blood Count 4.4 TH/MM3 Red Blood Count 3.95 MIL/MM3 Hemoglobin 12.1 GM/DL Hematocrit 37.0 % Mean Corpuscular Volume 93.7 FL Mean Corpuscular Hemoglobin 30.5 PG Mean Corpuscular Hemoglobin 32.6 % Concent Red Cell Distribution Width 13.8 % Platelet Count 188 TH/MM3 Mean Platelet Volume 7.9 FL Neutrophils (%) (Auto) 52.1 % Lymphocytes (%) (Auto) 33.6 % Monocytes (%) (Auto) 10.9 % Eosinophils (%) (Auto) 2.8 % Basophils (%) (Auto) 0.6 % Neutrophils # (Auto) 2.3 TH/MM3 Lymphocytes # (Auto) 1.5 TH/MM3 Monocytes # (Auto) 0.5 TH/MM3 Eosinophils # (Auto) 0.1 TH/MM3 Basophils # (Auto) 0.0 TH/MM3 CBC Comment DIFF FINAL Differential Comment Sodium Level 143 MEQ/L Potassium Level 3.6 MEQ/L Chloride Level 104 MEQ/L Carbon Dioxide Level 28.2 MEQ/L Anion Gap 11 MEQ/L Blood Urea Nitrogen 10 MG/DL Creatinine 0.56 MG/DL Estimat Glomerular Filtration 107 ML/MIN Rate Random Glucose 91 MG/DL Calcium Level 8.5 MG/DL Test 10/02/16 10:51 D-Dimer Quantitative (PE/DVT) 0.27 MG/L FEU Imaging Last Impressions Chest X-Ray 10/01/16 1210 Signed Impressions: Service Date/Time: Saturday, October 01, 2016 12:14 - CONCLUSION: Compensated cardiomegaly otherwise negative Tristan Barakat MD FACR Assessment and Plan Problem List: (1) Angina at rest (2) HTN (hypertension) (3) Hyperlipidemia (4) GERD (gastroesophageal reflux disease) (5) MVP (mitral valve prolapse) Assessment and Plan No recent angina. Continue current program including therapy for angina and risk factor modification. Continue monitoring. Cath/possible PCI w Dr. Rivers tomorrow. Teagan Wisdom MD Oct 03, 2016 15:52
[2016-10-03 16:00] VITALS: BP 143/63; PULSE 70; RESP 18; TEMP 98.8; O2SAT 94
[2016-10-03 20:00] VITALS: BP 135/69; PULSE 67; PULSE 76; RESP 18; TEMP 98.1; O2SAT 96
[2016-10-03] MEDS: ATORVASTATIN 20 MG TAB PO SCH (20:49)
[2016-10-04] VITALS: BP 130/62; PULSE 64; RESP 20; TEMP 98; O2SAT 96
[2016-10-04] MEDS ORDERED: D5-1/2 NS + KCL 10 MEQ INJ 1,000 ML IV SCH
[2016-10-04 04:00] VITALS: BP 129/74; PULSE 65; RESP 18; TEMP 98; O2SAT 93
[2016-10-04] MEDS ORDERED: HEPARIN-NS/PF INJ 500 ML ONE (07:18)
[2016-10-04] MEDS ORDERED: MIDAZOLAM HCL 2 MG/2 ML VIAL ONE (07:18)
--- NOTE | 2016-10-04 08:34 | CATHPROC ---
[employer] (Former[employer] HIS Report Study Information Study Number Admission Scheduled Start Study Start [id number] Oct 01 2016 3:25PM 10/01/2016 Oct 04 2016 7:10AM Study Type [place] Service Left Heart Cath Cardiac Catheterization Admit Source Facility Department Other [facility] Physician and Clinical Staff Initial Nika Conn Renderer Edu Thornton,RN Renderer Melina Bacon,RN Recorder Kaushik Shen RT(R) TECH2 Scrub Keyla Moore RCIS TECH2 Procedures Performed Procedure Location (Site) Vessel Name Coronary Angiograms LCA Left Coronary Coronary Angiograms RCA Right Coronary L Heart Cath Equipment Time Barrow Worker Helper Description Size Mfg Part Number Used/Scraped TRANSDUCER, TRUWAVE [id number] 07:13 Pedius * Used W/STOCKCOCK *[id number]- INTRODUCER SET, 07:56 Firepro Systems. FR 5 SC-NT-U-SST Used MICROPUNCTURE, STIFFENED *[id number] 538-476 *[id number] 538-420 *[id number] [id number] *[id number] 07:13 The [employer] INDUSTRIES PACK, CCL CUSTOM * Used *[id number] 07:13 The [employer] PACER PEN, SKIN DUAL W/ RULER * Used *[id number] 07:58 MethylGene SHEATH, FR4.5 PRELUDE 11CM FR 4.5 Used [id number] 07:13 MethylGene WIRE, 3MMJ .035 180CM 180CM Used *[id number] PROBE COVER, STERILE [id number] 07:13 [employer] MEDICAL * Used ULTRASOUND W/ GEL *[id number] 07:13 NAMIC MANIFOLD, 4 PORT * Used *[id number] 07:13 NYCOMED OMNIPAQUE, 350 MG, 150ML 150ML [id number] Used [id number] 07:13 AL MEDICAL BLANKET,WARM AIR CCL * Used *[id number] Equipment Model, Serial, Lot Number and Expiration Data Description Model Number Serial Number Lot Number Expiration Date INTRODUCER SET, [id number] 08-13-2019 MICROPUNCTURE, STIFFENED History: Current Medications Medication Dosage/Unit Route Frequency Last Date/Time Taken NTG SL HEPARIN PLAVIX LIPITOR ASA History: Allergies Allergy Reaction No Known Allergies History: Risk Factors Family History of Hypertension Dyslipidemia Previous GA Previous Heart Failure Premature CAD Yes Yes Yes No No Prior Valve Prior PCI Prior CABG Surgery No No No Cerebrovascular Peripheral Artery Chronic Lung On Dialysis Diabetes Disease Disease Disease No No No No No History: Symptoms/Diagnosis Selection Items Chest pain History: Stress Tests Stress or Imaging Studies Performed No History: Other Disease Selection Items Gerd HTN History: Other Current Smoker No Labs Hgb (g/dl) Hct (%) WBC (l/cumm) Platelets (thousands) 12.00-18.00 37.00-55.00 4.80-10.80 140.00-450.00 12.1 37 4.4 188 BUN (mg/dl) Creatinine (mg/dl) BUN:Creatinine (1:x) 8.00-20.00 0.10-9.00 10.00-20.00 10 0.5 20 Na (meq/l) K (meq/l) 138.00-146.00 3.80-5.10 143 3.6 Troponin I (ng/ml) CPK-MB (ng/ML) 0.40-2.30 0.00-7.00 0.02 Not Drawn Medication Medication Total Dose (Bolus/Oral) Medication Total Dosage/Unit 1% XYLOCAINE 20 mL FENTANYL 50 mcg VERSED 2 mg Medications (Bolus/Oral) Medication Time Given Dosage/Unit Administered By Reason VERSED 10/04/2016 7:55:00 AM 2 mg Edu Thornton 2 mg VERSED given in lab by Edu Thornton, CHASITY via Peripheral IV. Ordered by Nika Rivers. FENTANYL 10/04/2016 7:56:00 AM 50 mcg Edu Thornton 50 mcg FENTANYL given in lab by Edu Thornton, CHASITY via Peripheral IV. Ordered by Nika Rivers. 1% XYLOCAINE 10/04/2016 7:56:18 AM 20 mL Nika Rivers 20 mL 1% XYLOCAINE given in lab by Nika Rivers in Right Groin via Subcutaneous. Ordered by Nika Clark. Medication (Drip) Medication Time Given Dosage/Unit Concentration/Unit Diluent (ml) Solution IV Solutions 10/04/2016 7:19:31 AM 0 mL (IV) 500 NaCl .9 Patient arrived on IV Solutions via Peripheral IV. Pump/Drip Flow = 20 ml/hr using NaCl .9. Ordered Nika Hammer. Initial Case Assessment Cardiovascular HR Rhythm NIBP Chest Pain 62 sr 131/65 0 Edema Present Skin color Skin None Normal Warm Dry Circulatory - Right Pulses Dorsalis Pedis Femoral 2 2 Scale (0,1,2,3,4,d) Circulatory - Left Pulses Dorsalis Pedis Femoral 2 2 Scale (0,1,2,3,4,d) Circulatory - Lower Extremities Color Lower Right Color Lower Left Normal Normal Neurological State Oriented to time-place- Alert Moves all extremities person Respiration - General SpO2 (%) 97 Final Case Assessment Cardiovascular HR Rhythm NIBP Chest Pain 59 sr 111/63 0 Edema Present Skin color Skin None Normal Warm Dry Circulatory - Right Pulses Dorsalis Pedis Femoral 2 2 Scale (0,1,2,3,4,d) Circulatory - Left Pulses Dorsalis Pedis Femoral 2 2 Scale (0,1,2,3,4,d) Circulatory - Lower Extremities Color Lower Right Color Lower Left Normal Normal Neurological State Oriented to time-place- Alert Moves all extremities person Respiration - General SpO2 (%) 98 Chronological Log Time Study Chronological Log 7:19:13 Patient arrived via Bed. 7:19:14 Patient Name, D.O.B, / Armband Verified By R.N. Vitals capture started with the following parameters, Patient=Adult, Interval=15 min, Initial P bdlshkl=742 mmHg, 7:19:16 Deflation Rate=5 mmHg 7:19:17 Consent signed by the physician and the patient and verified by the [facility] staff. 7:19:20 Patient has been NPO for Less than 6Hrs. 7:19:22 Skin Breakdown- none 7:19:24 Patient Warmer Placed on the Table. 7:19:29 Yuri Prominences Protected 7:19:30 A # 20 IV was noted in the Forearm (left). Grade = 0 Patient arrived on IV Solutions via Peripheral IV. Pump/Drip Flow = 20 ml/hr using NaCl .9. Ord ered by Tita, 7:19:31 Nika. 7:19:32 History and physical on the chart or being dictated. Assessment: Initial Case, HR=62 BPM, Rhythm=sr, KIHD=791/65 mmhg, Chest Pain=0, Edema=None, [place] r=Normal, Skin = Warm, Dry Right Pulses: Serafin Ped=2, Femoral=2 Left Pulses: Serafin Ped=2, Femoral=2 7:19:34 Lower Right Extremities: Color=Normal Lower Left Extremities: Color=Normal Neurological: State=Alert, Ox3, MCQUEEN Respiration: SpO2=97 % 7:19:35 Table restraints applied according to hospital policy 7:19:37 Bilateral groins prepped with 2% chlorhexidine, and with a 3 min. waiting time. 7:20:03 JV=769 bpm, SLMP=366/74 mmhg, SpO2=99.0 %, Resp=13 B/min 7:20:29 Reference ECG taken 7:25:02 HR=63 bpm, USAB=878/75 mmhg, SpO2=98.0 %, Resp=15 B/min, Pain=0, Jyotsna=10, Giraldo=2 7:30:05 HR=63 bpm, CJQX=284/65 mmhg, SpO2=98.0 %, Resp=11 B/min, Pain=0, Jyotsna=10, Giraldo=2 7:31:45 Pressure channel 1 zeroed. 7:33:29 Reference ECG taken 7:34:56 HR=65 bpm, DKSY=452/88 mmhg, SpO2=97.0 %, Resp=17 B/min, Pain=0, Jyotsna=10, Giraldo=2 7:40:01 HR=62 bpm, ELFR=733/69 mmhg, YfT4=594.0 %, Resp=19 B/min, Pain=0, Jyotsna=10, Giraldo=2 7:45:02 HR=64 bpm, LAOI=141/67 mmhg, SyK1=248.0 %, Resp=12 B/min, Pain=0, Jyotsna=10, Giraldo=2 7:49:57 HR=64 bpm, XJYP=522/78 mmhg, SpO2=99.0 %, Resp=21 B/min 7:53:13 MD arrived. 7:53:15 The physician was 23 minutes late. Time Out. Correct patient, correct procedure,correct physician, ,power injector loaded or not lo aded with contrast with 7:54:51 surgical team present. Time Out Concurred by MD, individual staff and SECURITY PATROL OFFICER in procedure 7:54:55 Case Start 7:54:58 HR=71 bpm, JXBH=014/74 mmhg, SpO2=98.0 %, Resp=14 B/min, Pain=0, Jyotsna=10, Giraldo=2 7:55:00 2 mg VERSED given in lab by Edu Thornton, RN via Peripheral IV. Ordered by Ilir Rivers 7:56:00 50 mcg FENTANYL given in lab by Edu Thornton, RN via Peripheral IV. Ordered by Salvatore Rivers. 20 mL 1% XYLOCAINE given in lab by Nika Rivers in Right Groin via Subcutaneous. Ordered by Tita 7:56:18 Humverito. 7:56:35 Access site was Right Femoral Artery. A INTRODUCER SET, MICROPUNCTURE, STIFFENED FR 5 was advanced into the Fem Art (right) using the Modified 7:56:48 Seldinger technique. A SHEATH, FR4.5 PRELUDE 11CM FR 4.5 was exchanged in the Fem Art (right). This was necessary in order to 7:57:21 accomodate a larger catheter. 8:00:01 HR=67 bpm, GVWZ=568/66 mmhg, SpO2=97.0 %, Resp=12 B/min, Pain=0, Jyotsna=10, Giraldo=2 A JL 4.0 INFINITI CATHETER FR 4 was advanced over a wire. OMNIPAQUE, 350 MG, 150ML 150ML was use d for 8:01:24 injections. 8:02:06 The LCA was injected and visualized at various angles. OMNIPAQUE, 350 MG, 150ML 150ML used. Recorded Pressure: Ao, HR=66, Condition=Condition 1 8:02:36 (Aorta) Ao 120/58/83 8:05:02 HR=62 bpm, DLGK=327/53 mmhg, SpO2=97.0 %, Resp=13 B/min, Pain=0, Jyotsna=10, Giraldo=2 After removing the current catheter a 3DRC INFINITI CATHETER FR 4 was advanced over a WIRE, 3MMJ .035 180CM 8:05:23 180CM. 8:06:34 The RCA was injected and visualized at various angles. OMNIPAQUE, 350 MG, 150ML 150ML used. After removing the current catheter a PIGTAIL ANG. INFINITI CATHETER FR 4 was advanced over a WI RE, 3MMJ .035 8:07:49 180CM 180CM. Recorded Pressure: LV, HR=59, Condition=Condition 1 8:08:41 (Left Ventricle) LV 114/11/15 Recorded Pressure: LV, HR=67, Condition=Condition 1 8:09:01 (Left Ventricle) LV 134/11/14 8:09:59 HR=64 bpm, JKLU=316/63 mmhg, SpO2=97.0 %, Resp=13 B/min, Pain=0, Jyotsna=10, Giraldo=2 Recorded Pressure: LV, Ao, HR=64, Condition=Condition 1 8:11:10 (Left Ventricle) LV 134/5/13, (Aorta) Ao 132/53/84 8:11:47 Catheter was removed 8:11:57 Case End Assessment: Final Case, HR=59 BPM, Rhythm=sr, YMKW=585/63 mmhg, Chest Pain=0, Edema=None, [place] r=Normal, Skin = Warm, Dry Right Pulses: Serafin Ped=2, Femoral=2 Left Pulses: Serafin Ped=2, Femoral=2 8:12:26 Lower Right Extremities: Color=Normal Lower Left Extremities: Color=Normal Neurological: State=Alert, Ox3, MCQUEEN Respiration: SpO2=98 % 8:13:53 Sterile dressing applied to site 8:13:54 No case complications noted. 8:13:57 Cine recording checked. 8:14:00 Bedside Report will be given. 8:14:43 Sheath removed; pressure applied to access site. 8:14:52 A Left Heart Cath was performed. 8:14:57 Clinical correlaton risk stratification. 8:15:37 HR=55 bpm, VAZR=219/56 mmhg, SpO2=98.0 %, Resp=12 B/min 8:20:03 HR=57 bpm, PJRQ=740/68 mmhg, SpO2=98.0 %, Resp=16 B/min, Pain=0, Jyotsna=10, Giraldo=2 8:25:00 HR=64 bpm, HJQQ=154/70 mmhg, SpO2=99.0 %, Resp=13 B/min, Pain=0, Jyotsna=10, Giraldo=2 8:28:55 Vitals capture stopped. 8:30:39 Patient moved to stretcher End Study - Contrast Media Used In Study Contrast Total Opened (mL) Total Used (mL) Total Wasted (mL) Omnipaque 150 50 100 End Study - Maximum Contrast Load Max Contrast Load (mL) 1110.9 End Study - Radiation Exposure Fluoro Time (minutes) 2.1 End Study - Sheaths Sheaths Pulled By Sheath Hold Time (min) Keyla Moore End Study - Patient Disposition Complications Transferred To Interventional Outcome No [facility] Holding No attempt made
--- NOTE | 2016-10-04 09:36 | HHI.DCPOC ---
Discharge Care Plan Goals to Promote Your Health * To prevent worsening of your condition and complications take all medications as prescribed * To maintain your health at the optimal level follow all discharge instructions Directions to Meet Your Goals Take your medications as prescribed Follow your dietary instruction Follow activity as directed Keep your appointments as scheduled Take your immunizations and boosters as scheduled If your symptoms worsen call your PCP, if no PCP go to Urgent Care Center or Emergency Room Smoking is Dangerous to Your Health. Avoid second hand smoke Call the 24-hour hour crisis hotline for domestic abuse at Melina Pierce MD R3 Oct 04, 2016 09:36
--- NOTE | 2016-10-04 12:12 | MA ---
cc: NIKA RIVERS M.D., GREGORY J. M.D. DATE 10/04/2016 PROCEDURE Cardiac catheterization. INDICATION FOR CATHETERIZATION Unstable angina. The patient presented to the ER with severe chest pain. CONSENT A full, informed consent was obtained prior to the procedure. The risks of , bleeding, myocardial infarction, stroke, foreseen and unforeseen complications were reviewed. The patient fully appeared to understand the risks. PROCEDURAL STATEMENTS The patient was draped and prepped in the usual manner. The right femoral artery was entered using a micropuncture technique with ultrasound. Via a 4-[place] sheath, left and right coronary catheters were used to intubate the left and right coronaries. Pigtail catheter was used to intubate the left ventricle. Multiple angiographic views were carried out. At the end of the catheterization procedure, all catheters and sheaths were removed. Manual pressure was applied until good hemostasis achieved and the patient returned to his room in stable condition. FINDINGS I. HEMODYNAMICS The aortic pressure was 120/58 with a mean of 83. The left ventricular pressure was 134 with a left ventricular end-diastolic pressure of 14. At the time of pullback the aortic pressure was 132/53 with a mean of 84. There is no evidence of significant gradient on pullback across the LV outflow tract and aortic valve. II. LEFT VENTRICULOGRAM The overall left ventricular ejection fraction 60%. There was evidence of significant mitral regurgitation nor mural thrombus. III. CORONARIES The left main was large and free of significant disease. The left anterior descending artery is a large artery. Its first diagonal branch was large and free of significant disease. The circumflex vessel was large with a large first obtuse marginal branch and free of significant disease. The first diagonal branch which came off the LAD was medium and free of significant disease. The right coronary artery had a medium-sized profile descending artery and small posterolateral branch. It too was free of significant disease. CONCLUSION 1. Normal ejection fraction. 2. No significant coronary artery disease noted. 3. Suspect the cause of the patient's intense pain could be gallbladder or related to her history of gastroesophageal reflux disease. We will recommend GI followup. Nika Rivers MD, FRCP,FACC HAChelly/DAYANARA /8:41 AM /12:07 PM ALEIDA
[2016-10-04] MEDS ORDERED: IOHEXOL 350 MG/ML 50 ML BTL (for Cath Lab) OTHER ONE (13:36)
--- NOTE | 2016-10-04 14:48 | HHI.FPPN ---
Subjective Remarks No acute events overnight. Afebrile, vital signs stable. Patient seen status post cardiac catheterization. Doing well, no complaints. (Melina Pierce MD R3) Objective Vitals Vital Signs Date Time Temp Pulse Resp B/P Pulse Ox O2 Delivery O2 Flow Rate FiO2 10/04/16 08:45 96 Room Air 10/04/16 04:00 98.0 65 18 129/74 93 10/04/16 04:00 Room Air 10/04/16 00:00 Room Air 10/04/16 00:00 98.0 64 20 130/62 96 10/03/16 20:00 67 10/03/16 20:00 98.1 76 18 135/69 96 10/03/16 19:20 Room Air 10/03/16 16:00 98.8 70 18 143/63 94 I/O 10/03/16 10/03/16 10/03/16 10/04/16 10/04/16 10/04/16 07:00 15:00 23:00 07:00 15:00 23:00 Intake Total 600 ml 480 ml 360 ml 689 ml Output Total 350 ml Balance 600 ml 480 ml 10 ml 689 ml Intake Oral 600 ml 480 ml 360 ml IV Total 689 ml Output Urine Total 350 ml # Voids 4 3 # Bowel Movements 0 (Melina Pierce MD R3) Result Diagram: 10/02/16 0710/02/16 0700 Objective Remarks GENERAL: This is a well-nourished, well-developed patient, in no apparent distress. SKIN: No rashes, ecchymoses or lesions. Cool and dry. HEAD: Atraumatic. Normocephalic. No temporal or scalp tenderness. EYES: Pupils equal round and reactive. Extraocular motions intact. No scleral icterus. No injection or drainage. ENT: Nose without bleeding, purulent drainage or septal hematoma. Throat without erythema, tonsillar hypertrophy or exudate. Uvula midline. Airway patent. NECK: Trachea midline. No JVD or lymphadenopathy. Supple, nontender, no meningeal signs. CARDIOVASCULAR: Regular rate and rhythm without murmurs, gallops, or rubs. Pulses present and equal in all 4 extremities. RESPIRATORY: Clear to auscultation. Breath sounds equal bilaterally. No wheezes , rales, or rhonchi. GASTROINTESTINAL: Abdomen soft, non-tender, nondistended. No hepato-splenomegaly , or palpable masses. No guarding. MUSCULOSKELETAL: Extremities without clubbing, cyanosis, or edema. No joint tenderness, effusion, or edema noted. No calf tenderness. Negative Homans sign bilaterally. NEUROLOGICAL: Awake and alert. Cranial nerves II through XII intact. Motor and sensory grossly within normal limits. Five out of 5 muscle strength in all muscle groups. Normal speech. (Melina Pierce MD R3) A/P Assessment and Plan Patient is a 71 year old female with a history of hypertension, mitral valve prolapse, gastroesophageal reflux disease, and hyperlipidemia presenting with acute onset chest pain associated with palpitations, dizziness and shortness of breath. 1. Chest pain: - ACS rule out negative - Status post cardiac catheterization this morning, all vessels patent patient cleared for discharge - Patient with hiatal hernia and had EGD 2 years ago, source of chest pain may be esophageal or gastrointestinal. Suggest follow-up as an outpatient with PCP and possibly gastroenterology - Follow up with Dr. Rivers in 1 week - continue home Plavix and aspirin 2. Chronic medical problems: - hypertension: continue home HCTZ and metoprolol - hyperlipidemia: continue home rosuvastatin - GERD: continue home Protonix 3. FEN: - DVT prophylaxis: start heparin 5000 units q8hrs - regular diet Discharge Planning To home today (Melina Pierce MD R3) Attending Attestation Patient seen and examined Case reviewed and discussed Agree with plan of care as discussed with me and documented in the resident note. (Heather Mtz MD) Problem List: (1) Chest pain Status: Acute (2) HTN (hypertension) Status: Acute (3) GERD (gastroesophageal reflux disease) Status: Acute (4) Hyperlipidemia Status: Acute (Melina Pierce MD R3) Problem Qualifiers (1) Chest pain: Qualified Code: R07.9 - Chest pain, unspecified type Melina Pierce MD R3 Oct 04, 2016 14:48 Heather Mtz MD Oct 14, 2016 11:38
--- NOTE | 2016-10-04 14:51 | HHI.DS ---
Discharge Summary Admission Date Oct 01, 2016 at 15:25 Discharge Date: Oct 04, 2016 Admitting Diagnosis chest pain (1) Chest pain Diagnosis: Principal (2) HTN (hypertension) Diagnosis: Secondary (3) GERD (gastroesophageal reflux disease) Diagnosis: Secondary (4) Hyperlipidemia Diagnosis: Secondary Consultants Cardiology Procedures Cardiac catheterization on 10/04/2016 Brief History 71 year old female with a past medical history of hypertension, mitral valve prolapse, GERD and hyperlipidemia presents to the ED for an episode of acute onset chest pain associated with dizziness, palpitations and shortness of breath. Patient reports sitting in bed when substernal pressure began and worsened over a period of 10 minutes. Initially she thought it was symptoms related to her GERD, however it was different than other GERD pain in the past. Patient then called 911, and took an aspirin while EMS arrived. She had a similar episode approximately 1 month prior which resolved in less than a couple hours. Currently she is experiencing substernal chest pressure without any other symptoms such as shortness of breath, diaphoresis, headache, belly pain, nausea or vomiting. She denied recent illness, leg swelling, or sick contacts. Patient had a stress test in 03/10 and recent echocardiogram, Holter monitor and chest CT as per her senior scheduler Dr. Rivers and has never had a heart catheterization. She started Plavix 2 days ago. CBC/BMP: 10/02/16 0700 10/02/16 0700 Significant Findings Laboratory Tests Test 10/01/16 10/02/16 10/02/16 19:30 00:18 07:00 Troponin I LESS THAN 0.02 LESS THAN 0.02 NG/ML NG/ML (0.02-0.05) (0.02-0.05) Red Blood Count 3.95 MIL/MM3 (4.00-5.30) Monocytes (%) (Auto) 10.9 % (0.0-8.0) Imaging Last Impressions Chest X-Ray 10/01/16 1210 Signed Impressions: Service Date/Time: Saturday, October 01, 2016 12:14 - CONCLUSION: Compensated cardiomegaly otherwise negative Tristan Barakat MD FACR PE at Discharge GENERAL: This is a well-nourished, well-developed patient, in no apparent distress. SKIN: No rashes, ecchymoses or lesions. Cool and dry. HEAD: Atraumatic. Normocephalic. No temporal or scalp tenderness. EYES: Pupils equal round and reactive. Extraocular motions intact. No scleral icterus. No injection or drainage. ENT: Nose without bleeding, purulent drainage or septal hematoma. Throat without erythema, tonsillar hypertrophy or exudate. Uvula midline. Airway patent. NECK: Trachea midline. No JVD or lymphadenopathy. Supple, nontender, no meningeal signs. CARDIOVASCULAR: Regular rate and rhythm without murmurs, gallops, or rubs. Pulses present and equal in all 4 extremities. RESPIRATORY: Clear to auscultation. Breath sounds equal bilaterally. No wheezes , rales, or rhonchi. GASTROINTESTINAL: Abdomen soft, non-tender, nondistended. No hepato-splenomegaly , or palpable masses. No guarding. MUSCULOSKELETAL: Extremities without clubbing, cyanosis, or edema. No joint tenderness, effusion, or edema noted. No calf tenderness. Negative Homans sign bilaterally. NEUROLOGICAL: Awake and alert. Cranial nerves II through XII intact. Motor and sensory grossly within normal limits. Five out of 5 muscle strength in all muscle groups. Normal speech. Hospital Course Patient admitted for ACS rule out, which was negative. Had no additional episodes of chest pain/pressure. Given that this was the second episode of serious chest pain in the past month, patient taken to cardiac catheterization which showed all vessels patent. She will continue on her aspirin and Plavix and follow-up with her senior scheduler, Dr. Rivers in 1 week. Patient has a known hiatal hernia and had an EGD 2 years ago. The source of her pain may be severe GERD or gastrointestinal in origin. She will follow-up with her PCP as an outpatient and also contact her literacy teacher. Pt Condition on Discharge: Good Discharge Disposition: Discharge Home Discharge Instructions DIET: Follow Instructions for: As Tolerated, No Restrictions Activities you can perform: See Additionl Instruction Follow up Referrals: Cardiology with Tita PCP Follow-up - 1 Week Continued Medications: Aspirin DR (Aspir-81) 81 Mg Tabdr Clopidogrel (Clopidogrel) 75 Mg Tab 75 MG PO DAILY Blood Clot Prevention #30 Ref 0 TAB Hydrochlorothiazide (Hydrochlorothiazide) 25 Mg Tab 25 MG PO DAILY #30 TAB Metoprolol Succinate ER 24 HR (Metoprolol Succinate ER 24 HR) 50 Mg Tab 50 MG PO DAILY #30 Ref 0 TAB Pantoprazole (Pantoprazole) 40 Mg Tab 40 MG PO DAILY Reflux #30 Ref 0 TAB Rosuvastatin (Rosuvastatin) 10 Mg Tab 10 MG PO HS Cholesterol Management Ref 0 TAB Tolterodine (Detrol) 2 Mg Tab 2 MG PO BID Urinary Symptom Managemen #60 Ref 0 TAB Melina Pierce MD R3 Oct 04, 2016 14:51
== END 2016-10-04 15:15 | disposition home or self-care (01) | DRG 287 ==
LOC: NEPC 12:01 → NEDA 14:42 → OBSVTOIN 15:25 → NEPHCDU 17:47 → N04B 10-02 02:33
PROVIDERS: ADMIT Family Medicine; ATTEND Family Medicine
PROC: B211YZZ Fluoroscopy of Multiple Coronary Arteries using Other Contrast (ICD-10-PCS; 2016-10-04)
PROC: B215YZZ Fluoroscopy of Left Heart using Other Contrast (ICD-10-PCS; 2016-10-04)
PROC: 4A023N7 Measurement of Cardiac Sampling and Pressure, Left Heart, Percutaneous Approach (ICD-10-PCS; principal; 2016-10-04 07:15)
DX: R07.89 Other chest pain (principal); Z68.41 Body mass index [BMI] 40.0-44.9, adult; I10 Essential (primary) hypertension; K21.9 Gastro-esophageal reflux disease without esophagitis; E78.5 Hyperlipidemia, unspecified; I34.1 Nonrheumatic mitral (valve) prolapse; K44.9 Diaphragmatic hernia without obstruction or gangrene; Z86.73 Personal history of transient ischemic attack (TIA), and cerebral infarction without residual deficits; E66.9 Obesity, unspecified
CPT/HCPCS: 71010; 76937; 80048; 82550; 82552; 83735; 84443; 84484; 85025; 85379; 85610; 85730; 93005; 93452; C1760; C1769; C1893; J1644; J2250; J3010; J3480; J7030; Q9967